=== PATIENT | male | born 1970 | race Caucasian/White ===

== ENCOUNTER 2017-08-17 17:44 | Emergency (ER) | payer BC ==
--- NOTE | 2017-08-17 18:14 | RAD ---
TWO VIEWS OF THE RIGHT TIBIA AND FIBULA: 08/17/17 COMPARISON: None. HISTORY: Lower leg got smashed between metal and a trailer by a bull. Right lower extremity pain. FINDINGS: Two views of the right tibia/fibula shows no evidence of acute fracture or dislocation. There appear to be small radiopaque foreign bodies in the posteromedial aspect of the leg. No degenerative changes are seen. IMPRESSION: 1. No evidence of acute osseous abnormality. 2. Small radiopaque foreign bodies in the posteromedial calf. POS: [facility]
== END 2017-08-17 20:15 | disposition home or self-care (01) ==
LOC: ERS 17:44
DX: S80.11XA Contusion of right lower leg, initial encounter (principal); R20.2 Paresthesia of skin; W22.8XXA Striking against or struck by other objects, initial encounter